=== PATIENT | male | born 1945 | race American Indian/Alaskan Native ===

== ENCOUNTER 2017-03-28 11:17 | Emergency (ER) | payer MEDICAID ==
[2017-03-28] MEDS ORDERED: TORADOL IM ONE (12:06)
--- NOTE | 2017-03-28 12:20 | XRay Report ---
Left shoulder 3 views: History: Left shoulder severe pain status post injury. Findings: No bony or articular abnormality. No fracture or dislocation no soft tissue calcification. Impression: Essentially negative left shoulder.
[2017-03-28 16:43] VITALS: BP 140/91
--- NOTE | 2017-03-28 18:33 | Emergency Department Report ---
Entered by DARREN CARDOSO, acting as scribe for CAM PATRICK NP. Upper Extremity - HPI Chief Complaint: Extremity Injury, Upper Stated Complaint: LEFT SHOULDER PAIN Time Seen by Provider: 03/28/17 11:53 Upper Extremity: Left Shoulder Occurred When: 2 Days Mechanism: Other (mowing the law) Severity: moderate Symptoms: No Pain with Movement, No Deformity, No Limited Range of Movement, No Numbness, No Weakness, No Swelling, No Bruising/Ecchymosis, No Laceration or Abrasion Other History: This is a 71 year old male nontoxic, well nourished in appearance , no acute signs of distress, present to ED c/o left shoulder pain for 2 days. Patient reports he was mowing his lawn and felt shoulder pain after. Patient states he has not taken anything for relief. Patient reports aching, but denies snag/pop sensation, chest pain, SOB, headache, or numbness. Denies trauma or driect blow to area. PMHx of HTN but denies any kidney abnormalities or problems. NKDA. ED Review of Systems ROS: Stated complaint: LEFT SHOULDER PAIN Other details as noted in HPI Comment: All other systems reviewed and negative Constitutional: denies: chills, fever Eyes: denies: eye pain, eye discharge, vision change ENT: denies: ear pain, throat pain Respiratory: denies: cough, shortness of breath, wheezing Cardiovascular: denies: chest pain, palpitations Endocrine: no symptoms reported Gastrointestinal: denies: abdominal pain, nausea, vomiting, diarrhea Genitourinary: denies: urgency, dysuria Musculoskeletal: denies: back pain, joint swelling, arthralgia Skin: denies: rash, lesions Neurological: denies: headache, weakness, numbness, paresthesias Psychiatric: denies: anxiety, depression Hematological/Lymphatic: denies: easy bleeding, easy bruising ED Past Medical Hx - Past Medical History Hx Hypertension: Yes Additional medical history: herniated disc.C3 - Social History Smoking Status: Current Every Day Smoker Substance Use Type: None - Medications Home Medications: Home Medications Medication Instructions Recorded Confirmed Last Taken Type Ibuprofen [Motrin 600 MG tab] 600 mg PO Q8H PRN #20 tablet 03/28/17 Unknown Rx Upper Extremity Exam - Exam General: Vital signs noted. No distress. Alert and acting appropriately. GENERAL: The patient is a well-developed, well-nourished female in no apparent distress. Patient is alert and acting appropriately for age. Alert and oriented 3, no apparent distress, normal gait, atraumatic. HEENT: Head is normocephalic and atraumatic. PERRL, Extraocular muscles are intact. Pupils are equal, round, and reactive to light and accommodation. Nares appeared normal. Mouth is well hydrated and without lesions. Mucous membranes are moist. Posterior pharynx clear of any exudate or lesions. Mouth is well hydrated and without lesions. Tonsils not erythematous or swollen. Uvula midline. Tongue elevated. Mucous members are moist. Posterior pharynx clear, no exudate or lesions. Patent airways. NECK: Supple. No carotid bruits. No lymphadenopathy or thyromegaly.nontender. No meningitic signs are noted. LUNGS: Clear to auscultation. Non labor breathing. No intercostal retractions. Symmetrical with respiration, no wheezing, no rales, or crackles. HEART: Regular rate and rhythm without murmur, rubs or gallops. No reproducible. S1, S2 present, regular rate and rhythm without murmur, no rubs, no gallops. ABDOMEN: Soft, nontender, and nondistended. Positive bowel sounds. No hepatosplenomegaly was noted. No guarding or rebound tenderness, negative epigastric bruit. Negative psoas sign, negative pineda sign, negative McBurneys sign EXTREMITIES: Without any cyanosis, clubbing, rash, lesions or edema. Peripheral pulses intact. Capillary refill less than 2 seconds. Full range of motion bilaterally. Negative drop arm. NEUROLOGIC: Cranial nerves II through XII are grossly intact. Alert and oriented x 3. Normal gait. Symmetrical strength and sensation. Reflexes 2+ throughout. Cerebellar testing normal. GCS score of 15. PSYCHIATRIC: Normal affect with no suicidal or homicidal ideations. Skin: Head and Torso: No HEENT Abnormality, No Neck Tenderness, No Chest/Lungs Abnormality, No Abdominal Tenderness, No Back Tenderness Shoulder Exam: Yes Normal Range of Motion in Shoulder, No Shoulder Tenderness, No Clavicle Tenderness, No Shoulder Deformity, No AC Joint Tenderness Arm Exam: No Arm/Humerus Tenderness, No Arm Deformity Elbow: Yes Normal Range of Motion in Elbow, No Elbow Tenderness, No Elbow Deformity Forearm: No Forearm Tenderness, No Forearm Deformity, No Pain with Pronation, No Pain with Supination Wrist: Yes Normal ROM in Wrist, No Wrist Tenderness, No Wrist Deformity, No Snuffbox Tenderness, No Pain with Axial Thumb Compression Hand: Yes Normal ROM in Digit(s), No Hand Tenderness, No Hand Deformity, No Digit Tenderness, No Digit(s) Deformity, No Tendon Dysfunction CMS Exam: Yes Normal Distal Pulses, Yes Normal Capillary Refill, Yes Normal Distal Sensation, No Broken Skin ED Course Vital Signs 03/28/17 11:27 Temperature 98.1 F Pulse Rate 86 Respiratory 18 Rate Blood Pressure 137/90 O2 Sat by Pulse 100 Oximetry - Reevaluation(s) Reevaluation #1: 03/28/17 12:28 Patient is speaking in full sentences with no signs of distress noted. Critical care attestation.: If time is entered above; I have spent that time in minutes in the direct care of this critically ill patient, excluding procedure time. ED Disposition Clinical Impression: Left shoulder strain Qualifiers: Encounter type: initial encounter Qualified Code(s): S46.912A - Strain of unspecified muscle, fascia and tendon at shoulder and upper arm level, left arm , initial encounter Disposition: - TO HOME OR SELFCARE Is pt being admited?: No Does the pt Need Aspirin: No Condition: Stable Instructions: Shoulder Sprain (ED), Ibuprofen (By mouth) Additional Instructions: Follow-up with your primary care doctor/orthopedic doctor in 3-5 days for possibility of receiving an MRI. If symptoms worsen such as numbness, tingling , joint swelling, joint redness, fever, chills, nausea or vomiting, chest pain, shortness of breath or worsening of symptoms return to emergency room as soon as possible. Taken ibuprofen as needed for pain. Rest, elevate, and ice extremity. Prescriptions: Ibuprofen [Motrin 600 MG tab] 600 mg PO Q8H PRN #20 tablet PRN Reason: Pain Referrals: PRIMARY CARE, [Primary Care Provider] - 3-5 Days KAREN LOW MD [Staff Physician] - 3-5 Days [facility] [Outside] - 3-5 Days [facility] [Outside] - 3-5 Days This documentation as recorded by the WALKER polo PEARL,accurately reflects the service I personally performed and the decisions made by ,CAM PATRICK, SARAH.
== END 2017-03-28 12:40 | disposition home or self-care (01) ==
LOC: ED 11:17
DX: S46.912A Strain of unspecified muscle, fascia and tendon at shoulder and upper arm level, left arm, initial encounter (principal); I10 Essential (primary) hypertension; F17.200 Nicotine dependence, unspecified, uncomplicated; X58.XXXA Exposure to other specified factors, initial encounter; Y93.89 Activity, other specified; Y99.9 Unspecified external cause status; Y92.89 Other specified places as the place of occurrence of the external cause
CPT/HCPCS: 29105; 73030; 96372; 99283; J1885

== ENCOUNTER 2017-11-06 23:28 | Emergency (ER) | payer MEDICARE ==
[2017-11-07] MEDS ORDERED: ROXICODONE PO ONE (03:31)
--- NOTE | 2017-11-07 03:37 | Emergency Department Report ---
ED Extremity Problem HPI - General Chief complaint: Extremity Problem,Nontraumatic Stated complaint: SHOULDER,BODY PAIN Time Seen by Provider: 11/07/17 02:50 Source: patient Mode of arrival: Ambulatory Limitations: No Limitations - History of Present Illness Initial comments: 71-year-old male with past medical history chronic left shoulder pain, hypertension, hepatitis C, history of herniated disks presents with complaint of acute on chronic left shoulder pain. Patient states that the pain he is experiencing is consistent with his history of chronic left shoulder arthritis. Patient has a pain management that he has been following with for this issue and states he is chronically on oxycodone and morphine. Patient denies any trauma or falls or any direct injury to left shoulder. Visibly ranging left shoulder. States that he ran out of his oxycodone 2 days ago and he is not going to see his pain management doctor until 48 hours from now on Wednesday. Patient states that when he does not have his medicine he feels shaky. Patient is awake alert and oriented 3. Patient states pain is always worse when he rotates his left shoulder. Denies any fever chills chest pain shortness of breath palpitations nausea vomiting or diaphoresis associated with chest pain. Patient states that he does not take Tylenol because he was told he has hepatitis C and that this affects his liver. States he has taken oxycodone safely in the past MD Complaint: extremity pain -: year(s) (3 year of left shoudler pain) -: Yes arthralgia Severity scale (0 -10): 7 Quality: aching Consistency: intermittent Worsens with: exertion Associated Symptoms: denies other symptoms - Related Data Previous Rx's Medication Instructions Recorded Last Taken Type Ibuprofen [Motrin 600 MG tab] 600 mg PO Q8H PRN #20 tablet 03/28/17 Unknown Rx Allergies Allergy/AdvReac Type Severity Reaction Status Date / Time No Known Allergies Allergy Unverified 03/28/17 11:30 ED Review of Systems ROS: Stated complaint: SHOULDER,BODY PAIN Other details as noted in HPI Constitutional: denies: chills, fever Eyes: denies: eye pain, eye discharge, vision change ENT: denies: ear pain, throat pain Respiratory: denies: cough, shortness of breath, wheezing Cardiovascular: denies: chest pain, palpitations Endocrine: no symptoms reported Gastrointestinal: denies: abdominal pain, nausea, diarrhea Genitourinary: denies: urgency, dysuria Musculoskeletal: as per HPI, arthralgia. denies: back pain, joint swelling Skin: denies: rash, lesions Neurological: denies: headache, weakness, paresthesias Psychiatric: denies: anxiety, depression Hematological/Lymphatic: denies: easy bleeding, easy bruising ED Past Medical Hx - Past Medical History Previous Medical History?: Yes Hx Hypertension: Yes Additional medical history: herniated disc.C3 - Surgical History Past Surgical History?: No - Social History Smoking Status: Current Some Day Smoker - Medications Home Medications: Home Medications Medication Instructions Recorded Confirmed Last Taken Type Ibuprofen [Motrin 600 MG tab] 600 mg PO Q8H PRN #20 tablet 03/28/17 Unknown Rx ED Physical Exam - General Limitations: No Limitations General appearance: alert, in no apparent distress - Head Head exam: Present: atraumatic, normocephalic - Eye Eye exam: Present: normal appearance, PERRL, EOMI - ENT ENT exam: Present: mucous membranes moist - Neck Neck exam: Present: normal inspection - Respiratory Respiratory exam: Present: normal lung sounds bilaterally. Absent: respiratory distress - Cardiovascular Cardiovascular Exam: Present: regular rate, normal rhythm. Absent: systolic murmur, diastolic murmur, rubs, gallop - GI/Abdominal GI/Abdominal exam: Present: soft, normal bowel sounds - Rectal Rectal exam: Present: deferred - Extremities Exam Extremities exam: Present: normal inspection - Expanded Upper Extremity Exam Left Shoulder Exam: Present: normal inspection, full ROM (left shoulder abduction and abduction and internal and external rotation slightly limited by pain but clinically intact there is no overlying cellulitis or erythema on clinical exam) Upper Arm exam: Present: normal inspection, full ROM Elbow exam: Present: normal inspection, full ROM Forearm Wrist exam: Present: normal inspection, full ROM Hand Wrist exam: Present: normal inspection, full ROM Neuro motor exam: Present: wrist extension intact, thumb opposition intact, thumb IP flexion intact, thumb adduction intact, fingers 2-5 abduction intact Vascular: Present: normal capillary refill, radial pulse, brachial pulse, ulnar pulse - Back Exam Back exam: Present: normal inspection - Neurological Exam Neurological exam: Present: alert, oriented X3, CN II-XII intact, normal gait - Psychiatric Psychiatric exam: Present: normal affect, normal mood - Skin Skin exam: Present: warm, dry, intact, normal color. Absent: rash ED Course Vital Signs 11/07/17 11/07/17 00:17 00:33 Temperature 98.0 F 98.0 F Pulse Rate 101 H 104 H Respiratory 18 18 Rate Blood Pressure 108/72 108/72 O2 Sat by Pulse 99 98 Oximetry ED Medical Decision Making - Medical Decision Making A/P: Acute on chronic left shoulder pain, history of osteoarthritis, possible drug-seeking behavior 1-patient has no acute trauma and range of motion left shoulder is intact no indication for imaging at this time. No clinical signs of infection on inspection 2-patient has no associated chest pain diaphoresis shortness of breath nausea or palpitations states it is strictly when he moves his left shoulder and this is the same pain he has experienced for years 3-and is requesting refill on his oxycodone from the ED. 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 I will give patient one dose of oxycodone in the ED and advised patient to follow up as soon as possible with his primary care and pain management specialists. 4- I used [employer] prescription monitoring program to search of narcotic prescriptions. Patient received prescription for 30 mg morphine sulfate extended release on 10/28/17 and was prescribed 120 oxycodone 10 mg tablets on 10/13/2017 [email or web address] Critical care attestation.: If time is entered above; I have spent that time in minutes in the direct care of this critically ill patient, excluding procedure time. ED Disposition Clinical Impression: Right shoulder pain Qualifiers: Chronicity: acute Qualified Code(s): M25.511 - Pain in right shoulder Disposition: DC-01 TO HOME OR SELFCARE Is pt being admited?: No Does the pt Need Aspirin: No Condition: Stable Instructions: Osteoarthritis (ED), Arthralgia (ED) Referrals: [facility] [Provider Group] - 3-5 Days [facility] [Provider Group] - 3-5 Days Time of Disposition: 03:43
[2017-11-07 03:58] VITALS: BP 110/76
== END 2017-11-07 03:58 | disposition home or self-care (01) ==
LOC: ED 23:28
DX: M25.512 Pain in left shoulder (principal); I10 Essential (primary) hypertension; F17.200 Nicotine dependence, unspecified, uncomplicated
CPT/HCPCS: 99282

== ENCOUNTER 2017-11-23 21:15 | Emergency (ER) | payer MEDICARE ==
[2017-11-24] MEDS ORDERED: TORADOL IM ONE (01:08)
--- NOTE | 2017-11-24 01:14 | Emergency Department Report ---
Upper Extremity - HPI Chief Complaint: Extremity Injury, Upper Stated Complaint: SHOULDER PAIN Time Seen by Provider: 11/24/17 01:03 Other History: 72-year-old -[place]one[place] male comes in for left shoulder reoccurring pain. Patient reports that he received a shot every 2 weeks patient was requesting pain medicine has an appointment tomorrow for the injection. Patient denies any chest pain no shortness of breathing no diaphoresis no trauma no jaw pain. Patient reports he had the pain management provider. ED Review of Systems ROS: Stated complaint: SHOULDER PAIN Other details as noted in HPI Constitutional: denies: chills, fever Eyes: denies: eye pain, eye discharge, vision change ENT: denies: ear pain, throat pain Respiratory: denies: cough, shortness of breath, wheezing Cardiovascular: denies: chest pain, palpitations Endocrine: no symptoms reported Gastrointestinal: denies: abdominal pain, nausea, diarrhea Genitourinary: denies: urgency, dysuria Musculoskeletal: arthralgia (left shoulder). denies: back pain, joint swelling Skin: denies: rash, lesions Neurological: denies: headache, weakness, paresthesias Psychiatric: denies: anxiety, depression Hematological/Lymphatic: denies: easy bleeding, easy bruising ED Past Medical Hx - Past Medical History Hx Hypertension: Yes Additional medical history: herniated disc.C3, chronic back/left shoulder pain - Social History Smoking Status: Current Every Day Smoker Substance Use Type: None - Medications Home Medications: Home Medications Medication Instructions Recorded Confirmed Last Taken Type Ibuprofen [Motrin 600 MG tab] 600 mg PO Q8H PRN #20 tablet 03/28/17 Unknown Rx Upper Extremity Exam - Exam General: Vital signs noted. No distress. Alert and acting appropriately. Head and Torso: No HEENT Abnormality, No Neck Tenderness, No Chest/Lungs Abnormality, No Abdominal Tenderness, No Back Tenderness Shoulder Exam: Yes Normal Range of Motion in Shoulder, No Shoulder Tenderness, No Clavicle Tenderness, No Shoulder Deformity, No AC Joint Tenderness Arm Exam: No Arm/Humerus Tenderness, No Arm Deformity Elbow: No Elbow Tenderness, No Normal Range of Motion in Elbow, No Elbow Deformity Forearm: No Forearm Tenderness, No Forearm Deformity, No Pain with Pronation, No Pain with Supination Wrist: Yes Normal ROM in Wrist, No Wrist Tenderness, No Wrist Deformity, No Snuffbox Tenderness, No Pain with Axial Thumb Compression Hand: Yes Normal ROM in Digit(s), No Hand Tenderness, No Hand Deformity, No Digit Tenderness, No Digit(s) Deformity, No Tendon Dysfunction CMS Exam: No Broken Skin, No Normal Distal Pulses, No Normal Capillary Refill, No Normal Distal Sensation ED Course Vital Signs 11/23/17 21:36 Temperature 98.4 F Pulse Rate 98 H Respiratory 18 Rate Blood Pressure 127/93 O2 Sat by Pulse 98 Oximetry ED Medical Decision Making - Medical Decision Making #1. Patient's been seen by this provider fast track. Patient is here requesting for pain medication refill as he also reports he has appointment tomorrow with the pain provider. I discussed the patient give him a Toradol injection for pain and for him to follow up with his pain management provider. 2. Report from [facility] states that patient receive 120 pills of oxycodone 15 mg filled on 11/09/2017 as well as morphine 30 mg 30 tablets filled on 10/28/2017. Critical care attestation.: If time is entered above; I have spent that time in minutes in the direct care of this critically ill patient, excluding procedure time. ED Disposition Clinical Impression: Chronic pain in left shoulder Disposition: DC-01 TO HOME OR SELFCARE Is pt being admited?: No Does the pt Need Aspirin: No Condition: Stable Instructions: Arthralgia (ED) Additional Instructions: Please follow up with her pain management provider. You can take Tylenol or Motrin for pain. Referrals: ALANA CLARK MD [Primary Care Provider] - 3-5 Days BHUPINDER HARRIS MD [Staff Physician] - 3-5 Days
[2017-11-24 01:16] VITALS: BP 133/90
== END 2017-11-24 01:22 | disposition home or self-care (01) ==
LOC: ED 21:15
DX: M25.512 Pain in left shoulder (principal); G89.29 Other chronic pain; I10 Essential (primary) hypertension; F17.200 Nicotine dependence, unspecified, uncomplicated
CPT/HCPCS: 96372; 99282; J1885

== ENCOUNTER 2018-02-06 16:31 | Emergency (ER) | payer MEDICARE ==
[2018-02-06 16:37] VITALS: BP 116/77
--- NOTE | 2018-02-06 18:12 | Emergency Department Report ---
Upper Extremity - HPI Chief Complaint: Shoulder Injury Stated Complaint: SHOULDER PAIN Time Seen by Provider: 02/06/18 18:06 Upper Extremity: Left Shoulder (left shoulder injury with complains of pain and thinks he pulled a muscle.) Occurred When: Today Mechanism: Fall Severity: severe (10/10) Symptoms: Yes Pain with Movement (left shoulder), No Deformity, No Limited Range of Movement, No Numbness, No Weakness, No Swelling, No Bruising/Ecchymosis , No Laceration or Abrasion Other History: This is a 72-year-old male who is here reporting that he tripped and fell and think that he pulled is shoulder. He said he doesn't think it's broken but he thinks he pulled a muscle. Patient states that he goes to [facility] for pain management for chronic back pain and he would like to have something to keep in for the night. Pain is achy. He said he did not take any medication for pain. Pain is worse with movement and better at rest. Denies any head injury, back pain, chest wall pain, numbness or tingling to extremities, headache or neck pain. ED Review of Systems ROS: Stated complaint: SHOULDER PAIN Other details as noted in HPI Constitutional: denies: chills, fever Eyes: denies: eye pain, eye discharge Respiratory: denies: cough, orthopnea, shortness of breath, SOB with exertion, SOB at rest, stridor, wheezing Cardiovascular: denies: chest pain, palpitations, edema, syncope, paroxysmal nocturnal dyspnea Gastrointestinal: denies: nausea, vomiting, diarrhea Genitourinary: denies: hematuria Musculoskeletal: back pain (chronic back pain), arthralgia. denies: joint swelling, myalgia Skin: denies: rash, lesions Neurological: denies: headache, weakness, numbness, paresthesias, confusion, abnormal gait, vertigo ED Past Medical Hx - Past Medical History Previous Medical History?: Yes Hx Hypertension: Yes Additional medical history: herniated disc.C3, chronic back/left shoulder pain - Surgical History Past Surgical History?: No - Family History Family history: hypertension - Social History Smoking Status: Current Every Day Smoker Substance Use Type: None - Medications Home Medications: Home Medications Medication Instructions Recorded Confirmed Last Taken Type Ibuprofen [Motrin 600 MG tab] 600 mg PO Q8H PRN #20 tablet 03/28/17 Unknown Rx Upper Extremity Exam - Exam General: Vital signs noted. No distress. Alert and acting appropriately. This is a 72-year-old male well-nourished well-developed in no acute distress and nontoxic in appearance. Head and Torso: No HEENT Abnormality (normal exam), No Neck Tenderness (full range of motion, no C-spine tenderness. Supple), No Chest/Lungs Abnormality ( no chest wall tenderness. CTAB and normal work of breathing), No Abdominal Tenderness (NTTP, normal bowel sounds in all quadrants), No Back Tenderness (no vertebral or paraspinal tenderness. Full range of motion and normal inspection) Shoulder Exam: Yes Normal Range of Motion in Shoulder (full range of motion to both shoulders but he said he has pain with raising his right upper extremity above his head and pain is in his shoulder.), No Shoulder Tenderness (bilateral shoulder nontender to palpate without any deformity.), No Clavicle Tenderness ( bilateral clavicle without any tentative skin and nontender to palpate. No bruising or abrasions noted), No Shoulder Deformity, No AC Joint Tenderness Arm Exam: No Arm/Humerus Tenderness, No Arm Deformity Elbow: Yes Normal Range of Motion in Elbow, No Elbow Tenderness, No Elbow Deformity Forearm: No Forearm Tenderness, No Forearm Deformity, No Pain with Pronation, No Pain with Supination Wrist: No Wrist Tenderness, No Normal ROM in Wrist, No Wrist Deformity, No Snuffbox Tenderness, No Pain with Axial Thumb Compression Hand: Yes Normal ROM in Digit(s), No Hand Tenderness, No Hand Deformity, No Digit Tenderness, No Digit(s) Deformity, No Tendon Dysfunction CMS Exam: Yes Normal Distal Pulses (+2 radial and ulnar pulses. No clubbing, cyanosis or edema. No neurovascular compromise), Yes Normal Capillary Refill ( the surgery second), Yes Normal Distal Sensation (no motor or sensory deficit.) , No Broken Skin (procedure and intact, no rash or lesions) ED Course Vital Signs 02/06/18 16:36 Temperature 97.8 F Pulse Rate 110 H Respiratory 18 Rate Blood Pressure 116/77 O2 Sat by Pulse 98 Oximetry Vital Signs 02/06/18 02/06/18 16:36 18:11 Temperature 97.8 F Pulse Rate 110 H 92 H Respiratory 18 Rate Blood Pressure 116/77 O2 Sat by Pulse 98 Oximetry - Reevaluation(s) Reevaluation #1: 02/06/18 18:18 Toradol 30 mg IM and Decadron 6 mg by mouth. Reevaluation #2: 02/06/18 18:37 Pain is better after Toradol and Deltasone. ED Medical Decision Making - Medical Decision Making Patient has been evaluated by this provider in fast track and found to have musculoskeletal pain of his left shoulder from injury. Patient does not have any shoulder deformity, effusion or contusion or abrasion and he has full range of motion to bilateral upper extremities with minimal pain for raise in his left hand over is head. Intact neurovascular status without any weakness to bilateral upper extremity. And pulses are 2+ and bounding. I discussed the patient that he has musculoskeletal pain and that I will give him Toradol to help with pain which I did along with Deltasone. Patient does have a pain clinic that he goes still so I told them to call the pain clinic tomorrow as they have an agreement that he cannot go outside of the pain clinic to get any pain medication and he voiced understanding.. Patient Toradol 30 mg IM and Deltasone 60 mg by mouth for left shoulder pain and his pain is better down to 3/10 Patient was given ibuprofen for the pain. Patient educated on medication, diagnosis, following up with orthopedic doctor and his pain management clinic to manage his pain. Patient discharged home in stable condition, vital signs are stable. His heart rate was 110 in triage and it is less than 100 at this time. He is afebrile. He is nontoxic in appearance and his pain is better. Discharged home to follow up with his pain clinic tomorrow and orthopedic doctor in 2-3 days days. [facility] therapy explained and he voiced understanding of discharge instruction and discharged from ED in stable condition. - Differential Diagnosis shoulder sprain, shoulder strain, musculoskeletal pain Critical care attestation.: If time is entered above; I have spent that time in minutes in the direct care of this critically ill patient, excluding procedure time. ED Disposition Clinical Impression: Musculoskeletal pain of left upper extremity Fall, accidental Qualifiers: Encounter type: initial encounter Qualified Code(s): W19.XXXA - Unspecified fall, initial encounter Disposition: DC-01 TO HOME OR SELFCARE Is pt being admited?: No Does the pt Need Aspirin: No Condition: Stable Instructions: Fall Prevention for Older Adults (ED), Musculoskeletal Pain (ED) Additional Instructions: Please follow up with orthopedic doctor in 2-3 days Follow-up with a primary care and pain clinic tomorrow See discharge instruction in [facility] therapy If he develop numbness, tingling in, increase in pain, loss of feeling in and difficulty moving in left upper extremity at shoulder please return to the emergency room Referrals: KAREN LOW MD [Staff Physician] - 2-3 Days PRIMARY MD JERALD [Primary Care Provider] - 02/07/18 follow-up with your, pain clinic [Other] - 02/07/18
[2018-02-06] MEDS ORDERED: TORADOL IM ONE (18:20)
[2018-02-06] MEDS ORDERED: DELTASONE PO ONE (18:20)
== END 2018-02-06 18:40 | disposition home or self-care (01) ==
LOC: ED 16:31
DX: M25.512 Pain in left shoulder (principal); I10 Essential (primary) hypertension; F17.200 Nicotine dependence, unspecified, uncomplicated; G89.29 Other chronic pain; W18.30XA Fall on same level, unspecified, initial encounter; Y93.89 Activity, other specified; Y99.8 Other external cause status; Y92.89 Other specified places as the place of occurrence of the external cause
CPT/HCPCS: 96372; 99282; J1885; J7512

== ENCOUNTER 2018-02-10 14:25 | Emergency (ER) | payer MEDICARE ==
[2018-02-10 14:47] VITALS: BP 105/78
== END 2018-02-10 16:00 | disposition left against medical advice (07) ==
LOC: ED 14:25
DX: M25.512 Pain in left shoulder (principal); Z53.21 Procedure and treatment not carried out due to patient leaving prior to being seen by health care provider

== ENCOUNTER 2018-03-10 00:09 | Emergency (ER) | payer MEDICARE ==
[2018-03-10 00:24] VITALS: BP 121/84
[2018-03-10] MEDS ORDERED: MOTRIN PO ONE ×2 (04:39→04:48)
--- NOTE | 2018-03-10 04:44 | Emergency Department Report ---
ED Recheck HPI - General Chief Complaint: Extremity Problem,Nontraumatic Stated Complaint: LEFT SHOULDER PAIN Time Seen by Provider: 03/10/18 04:25 Source: patient Mode of arrival: Ambulatory Limitations: No Limitations - History of Present Illness Initial Comments: This is a 72-year-old male nontoxic, well nourished in appearance, no acute signs of distress presents to the ED with c/o of acute on chronic left shoulder pain. Patient stated that he diagnosed with rotator cuff and currently takes morphine and oxycodone by a pain specialist but stated that he is out of his medication and is requesting for a refill. Patient denies any new trauma. Patient denies decreased range of motion, joint swelling, joint redness, fever, chills, nausea, vomiting, chest and back. Patient denies any allergies. MD Complaint: medication refill request Returns Today for: request for prescription Symptoms Since Prior Visit: no new symptoms Associated Symptoms: none. denies: fever, chills, chest pain, shortness of breath, rash, malaise, nasuea, abdominal pain - Related Data Previous Rx's Medication Instructions Recorded Last Taken Type Ibuprofen [Motrin 600 MG tab] 600 mg PO Q8H PRN #20 tablet 03/28/17 Unknown Rx Ibuprofen [Motrin] 600 mg PO Q8H PRN #30 tablet 03/10/18 Unknown Rx Allergies Allergy/AdvReac Type Severity Reaction Status Date / Time No Known Allergies Allergy Verified 03/10/18 01:36 ED Review of Systems ROS: Stated complaint: LEFT SHOULDER PAIN Other details as noted in HPI Constitutional: denies: chills, fever Eyes: denies: eye pain, eye discharge, vision change ENT: denies: ear pain, throat pain Respiratory: denies: cough, shortness of breath, wheezing Cardiovascular: denies: chest pain, palpitations Endocrine: no symptoms reported Gastrointestinal: denies: abdominal pain, nausea, diarrhea Genitourinary: denies: urgency, dysuria Musculoskeletal: arthralgia. denies: back pain, joint swelling Skin: denies: rash, lesions Neurological: denies: headache, weakness, paresthesias Psychiatric: denies: anxiety, depression Hematological/Lymphatic: denies: easy bleeding, easy bruising ED Past Medical Hx - Past Medical History Hx Hypertension: Yes Hx Arthritis: Yes Additional medical history: herniated disc.C3, chronic back/left shoulder pain, Hep C - Surgical History Past Surgical History?: No - Social History Smoking Status: Current Every Day Smoker Substance Use Type: None - Medications Home Medications: Home Medications Medication Instructions Recorded Confirmed Last Taken Type Ibuprofen [Motrin 600 MG tab] 600 mg PO Q8H PRN #20 tablet 03/28/17 Unknown Rx Ibuprofen [Motrin] 600 mg PO Q8H PRN #30 tablet 03/10/18 Unknown Rx ED Physical Exam - General Limitations: No Limitations General appearance: alert, in no apparent distress - Head Head exam: Present: atraumatic, normocephalic - Eye Eye exam: Present: normal appearance - ENT ENT exam: Present: mucous membranes moist - Neck Neck exam: Present: normal inspection - Respiratory Respiratory exam: Present: normal lung sounds bilaterally. Absent: respiratory distress - Cardiovascular Cardiovascular Exam: Present: regular rate, normal rhythm. Absent: systolic murmur, diastolic murmur, rubs, gallop - GI/Abdominal GI/Abdominal exam: Present: soft, normal bowel sounds - Rectal Rectal exam: Present: deferred - Extremities Exam Extremities exam: Present: normal inspection, full ROM, normal capillary refill. Absent: tenderness, joint swelling - Expanded Upper Extremity Exam Left General: Present: normal inspection Shoulder Exam: Present: normal inspection, full ROM. Absent: tenderness, swelling, abrasion, laceration, ecchymosis, deformity, crepidus, dislocation, erythema, tenderness over AC joint Upper Arm exam: Present: normal inspection, full ROM. Absent: tenderness, swelling Elbow exam: Present: normal inspection, full ROM. Absent: tenderness, swelling Forearm Wrist exam: Present: normal inspection, full ROM. Absent: tenderness, swelling Hand Wrist exam: Present: normal inspection, full ROM. Absent: tenderness, swelling Neuro motor exam: Present: wrist extension intact, thumb opposition intact, thumb IP flexion intact, thumb adduction intact, fingers 2-5 abduction intact Neurosensory exam: Present: 2-point discrimination, radial nerve intact, ulnar nerve intact, median nerve intact Vascular: Present: vascular compromise, normal capillary refill, radial pulse, brachial pulse, ulnar pulse - Back Exam Back exam: Present: normal inspection, full ROM - Neurological Exam Neurological exam: Present: alert, oriented X3 - Psychiatric Psychiatric exam: Present: normal affect, normal mood - Skin Skin exam: Present: warm, dry, intact, normal color. Absent: rash ED Course Vital Signs 03/10/18 00:12 Temperature 98.4 F Pulse Rate 110 H Respiratory 22 Rate Blood Pressure 121/84 O2 Sat by Pulse 98 Oximetry - Reevaluation(s) Reevaluation #1: 03/10/18 04:41 Patient is speaking in full sentences with no signs of distress noted. ED Recheck MDM - Medical Decision Making This is a 72-year-old male that is requesting for medication refill. Patient is stable and was examined by me. Upon examination there is no acute findings of his left shoulder. [facility] shows the patient received 30 morphine and oxycodone on 02/17/2018. Due to this reason I will not prescribe any narcotics. I did give patient Motrin and will discharge patient with Motrin. I gave referral patient to detox program as I believe this is drug seeking behaviour. Patient was instructed to Follow-up with a primary care doctor in 3- 5 days or if symptoms worsen and continue return to emergency room as soon as possible. At time of discharge, the patient does not seem toxic or ill in appearance. No acute signs of distress noted. Patient agrees to discharge treatment plan of care. No further questions noted by the patient. Critical care attestation.: If time is entered above; I have spent that time in minutes in the direct care of this critically ill patient, excluding procedure time. ED Disposition Clinical Impression: Narcotic abuse, Medication refill Disposition: DC-01 TO HOME OR SELFCARE Is pt being admited?: No Does the pt Need Aspirin: No Condition: Stable Instructions: Narcotic Abuse (ED) Additional Instructions: Follow-up with a primary care doctor in 3-5 days or if symptoms worsen and continue return to emergency room as soon as possible. [facility] Wednesday-Wednesday 8AM-5PM Call [phone] Prescriptions: Ibuprofen [Motrin] 600 mg PO Q8H PRN #30 tablet PRN Reason: Pain Referrals: ALANA CLARK MD [Primary Care Provider] - 3-5 Days DEYSI MARQUES MD [Referring] - 3-5 Days JESI CANDELARIO MD [Staff Physician] - 3-[address] [facility] [Outside] - 3-5 Days [facility] [Outside] - 3-5 Days
== END 2018-03-10 04:50 | disposition home or self-care (01) ==
LOC: ED 00:09
DX: F11.10 Opioid abuse, uncomplicated (principal); Z76.0 Encounter for issue of repeat prescription; I10 Essential (primary) hypertension; M19.90 Unspecified osteoarthritis, unspecified site; F17.200 Nicotine dependence, unspecified, uncomplicated
CPT/HCPCS: 99282

== ENCOUNTER 2019-06-30 08:41 | Emergency (ER) | payer MEDICARE ==
[2019-06-30 09:11] VITALS: BP 127/86
[2019-06-30] MEDS ORDERED: IBUPROFEN 400 MG TAB PO ONE (09:47)
[2019-06-30] MEDS ORDERED: oxyCODONE /ACETAMINOPHEN 5-325MG TAB PO ONE (09:47)
--- NOTE | 2019-06-30 09:49 | Emergency Department Report ---
Upper Extremity - HPI Chief Complaint: Shoulder Injury Stated Complaint: SHOULDER PAIN/MED REFILL Time Seen by Provider: 06/30/19 09:20 Upper Extremity: Left Shoulder Occurred When: >5 Days Symptoms: Yes Pain with Movement, Yes Limited Range of Movement, No Deformity, No Numbness, No Weakness, No Swelling, No Bruising/Ecchymosis, No Laceration or Abrasion Other History: This is a pleasant 73-year-old gentleman who is not known to this provider previously. He is right-hand dominant, and reports a history of chronic left-sided shoulder pain, chronic left-sided rotator cuff pain. He also reports that he has a chronic herniated disc, and hepatitis C. He is recently moving back from [place]. He states that while in [place], he is currently being treated for hepatitis C, with a medication that "starts with an E." He reports that he is going to follow up later on this week with [facility] pain in the medical imaging specialist, this coming Wednesday. He presents to the ER with a request for Percocet refill, 10 mg Percocet, and blood pressure medication refill, Norvasc. He has chronic left-sided shoulder pain which is throbbing and aching, increases with palpation and decreases with rest. He denies additional complaints. ED Review of Systems ROS: Stated complaint: SHOULDER PAIN/MED REFILL Other details as noted in HPI Constitutional: denies: fever Respiratory: denies: shortness of breath Cardiovascular: denies: chest pain, syncope Gastrointestinal: denies: abdominal pain Musculoskeletal: arthralgia, myalgia Neurological: denies: numbness, paresthesias ED Past Medical Hx - Past Medical History Previous Medical History?: Yes Hx Hypertension: Yes Hx Arthritis: Yes Additional medical history: herniated disc.C3, chronic back/left shoulder pain, Hep C - Surgical History Past Surgical History?: No - Social History Smoking Status: Never Smoker - Medications Home Medications: Home Medications Medication Instructions Recorded Confirmed Last Taken Type Ibuprofen [Motrin 600 MG tab] 600 mg PO Q8H PRN #20 tablet 03/28/17 Unknown Rx Ibuprofen [Motrin] 600 mg PO Q8H PRN #30 tablet 03/10/18 Unknown Rx Acetaminophen [Non-Aspirin Extra 500 mg PO Q6HR PRN #30 tablet 06/30/19 Unknown Rx Strength] Amlodipine Besylate [Norvasc] 10 mg PO QDAY #60 tablet 06/30/19 Unknown Rx Ibuprofen [Motrin] 600 mg PO Q8H PRN #30 tablet 06/30/19 Unknown Rx Upper Extremity Exam - Exam General: Vital signs noted. No distress. Alert and acting appropriately. there is no facial droop. The tongue is midline. Extraocular movements are intact bilaterally. Patient speaking in full complete sentences. Shoulder shrug is intact bilaterally. Hearing is grossly intact bilaterally. Visual acuity intact to finger counting and color perception at a close distance. 5/5 strength 4 extremities. Sensation intact to light touch in 4 extremities. 2+ pulses noted in the bilateral upper extremities. There is no long bony tenderness. Muscular compartments are soft. There is no redness, pus, streaking, crepitus. Head and Torso: No HEENT Abnormality, No Neck Tenderness, No Chest/Lungs Abnormality, No Abdominal Tenderness, No Back Tenderness Shoulder Exam: Yes Shoulder Tenderness, Yes Normal Range of Motion in Shoulder (there is normal range of motion in the right shoulder. Sensation is intact to light touch in the bilateral deltoid, median, radial, ulnar distribution. There is reproducible left-sided anterior shoulder joint tenderness. There is no redness, pus or streaking. Patient able to abduction up to 90 anteriorly, and extends 90 anteriorly. Internal and external rotation are intact. Full range of motion bilateral elbows, wrists, and finger intrinsics), No Clavicle Tenderness, No Shoulder Deformity, No AC Joint Tenderness Arm Exam: No Arm/Humerus Tenderness, No Arm Deformity Elbow: Yes Normal Range of Motion in Elbow, No Elbow Tenderness, No Elbow Deformity Forearm: No Forearm Tenderness, No Forearm Deformity, No Pain with Pronation, No Pain with Supination Wrist: Yes Normal ROM in Wrist, No Wrist Tenderness, No Wrist Deformity, No Snuffbox Tenderness, No Pain with Axial Thumb Compression Hand: Yes Normal ROM in Digit(s), No Hand Tenderness, No Hand Deformity, No Digit Tenderness, No Digit(s) Deformity, No Tendon Dysfunction CMS Exam: Yes Normal Distal Pulses, Yes Normal Capillary Refill, No Broken Skin, No Normal Distal Sensation ED Course Vital Signs 06/30/19 09:11 Temperature 98.6 F Pulse Rate 84 Respiratory 18 Rate Blood Pressure 127/86 O2 Sat by Pulse 100 Oximetry ED Medical Decision Making - Lab Data Vital Signs 06/30/19 09:11 Temperature 98.6 F Pulse Rate 84 Respiratory 18 Rate Blood Pressure 127/86 O2 Sat by Pulse 100 Oximetry - Medical Decision Making Differential diagnosis, including not limited to: Medication refill, chronic left-sided shoulder pain, chronic narcotic use Assessment and plan: 73-year-old gentleman with recurrent chronic visits for left-sided shoulder pain, who is afebrile with reassuring vital signs, on reported chronic narcotic therapy, without physical exam evidence of fracture, dislocation, cellulitis, myositis or compartment syndrome. We will give the patient a one-time Percocet dose while here in the emergency room. Explained to the patient that we will not dispense outpatient narcotic therapy. Explained to the patient that he may take Tylenol and Motrin [id number] as needed. He stated that he has follow-up with an outpatient pain specialist next week. We will also refill his hypertension medication. The patient does not appear to have an emergent medical condition at this time. Critical care attestation.: If time is entered above; I have spent that time in minutes in the direct care of this critically ill patient, excluding procedure time. ED Disposition Clinical Impression: Chronic left shoulder pain, Medication reaction Disposition: DC-01 TO HOME OR SELFCARE Is pt being admited?: No Does the pt Need Aspirin: No Condition: Stable Additional Instructions: Rest, avoid heavy lifting, and avoid strenuous physical activities. Take the pain medications as needed and directed. If taking Percocet, do not drive, consume alcohol, operate motor vehicles, or make important decisions. Follow-up with your pain specialist within the next week as scheduled Follow-up with the primary care doctor within the next month. Return to emergency room right away with new, worsened, different symptoms, or symptoms not present on the initial emergency room evaluation. Referrals: [facility] [Provider Group] - 3-5 Days [facility] [Provider Group] - 3-5 Days
== END 2019-06-30 10:28 | disposition home or self-care (01) ==
LOC: ED 08:41
DX: M25.512 Pain in left shoulder (principal); G89.29 Other chronic pain; Z76.0 Encounter for issue of repeat prescription; I10 Essential (primary) hypertension; Z86.19 Personal history of other infectious and parasitic diseases; Z79.1 Long term (current) use of non-steroidal anti-inflammatories (NSAID); Z79.899 Other long term (current) drug therapy
CPT/HCPCS: 99282